=== PATIENT | female | born 1980 | race Caucasian/White ===

== ENCOUNTER → 2021-09-28 12:45 | Outpatient (CLI) | payer OTHER, MEDICAID, SELFPAY ==
[2021-09-28 13:55] LABS: COVID-19 CEPHEID PCR (VTM/NP) Negative (Negative)
== END ==
PROVIDERS: PCP Family Medicine; Referring Provider Internal Medicine; Visit Provider Internal Medicine
DX: Z20.822 Contact with and (suspected) exposure to COVID-19 (principal)
CPT/HCPCS: C9803; U0003

== ENCOUNTER → 2021-09-28 12:48 | Outpatient (CLI) | payer OTHER, MEDICAID, SELFPAY ==
--- NOTE | 2021-10-09 09:10 | PM.PFT.1 ---
Pulmonary Function Test Referral & Results Date Patient Seen: 09/28/21 Requesting provider: Everardo Sanchez Results: The spirometry demonstrates an FVC of 3.33 L which is 91% of predicted. The FEV1 was measured at 2.78 L which is 94% of predicted. The FEV1/FVC ratio was 84 which is 101% of predicted. Following the administration of bronchodilator there was an 18% improvement in FEF 25-75% Lung volumes show an SVC of 3.48 L which is 102% of predicted. The diffusing capacity was measured at 32.57 which is 134% of predicted. The maximum voluntary ventilation was reduced Interpretation: This study demonstrates normal spirometry however maximum voluntary ventilation is reduced which in the absence of abnormalities of spirometry would suggest the presence of neuromuscular disease Diffusing capacity is supranormal, which would be consistent with a diagnosis of asthma (or significant left heart disease/shunting) although that is not really seen on the spirometry Clinical correlation suggested
== END ==
PROVIDERS: PCP Family Medicine; Referring Provider Student in an Organized Health Care Education/Training Program; Visit Provider Student in an Organized Health Care Education/Training Program
DX: J45.909 Unspecified asthma, uncomplicated (principal); Z20.822 Contact with and (suspected) exposure to COVID-19
CPT/HCPCS: 94060; 94726; 94729; C9803; U0003